=== PATIENT | male | born 1955 | race Caucasian/White ===

== ENCOUNTER → 2018-01-22 | Outpatient (CLI) | payer BC ==
[2016-10-23 19:38] VITALS: BP 174/107
[~2018-01-22] MED LIST: HYDR-965 PO; IBUP600T16 PO
--- NOTE | 2018-01-22 11:13 | RAD ---
Gastric emptying study 01/22/2018 Indication: Regurgitation. Aspiration. Comparison study: None Discussion: Imaging over the abdomen was performed following the oral administration of 2.1 mCi of technetium 99m labeled sulfur colloid in a solid meal (egg and toast). At 1 hour gastric emptying is approximately 40%. Estimated gastric imaging half-time is 83 minutes (normal is 60 =/- 30 minutes). No overt scintigraphic evidence of reflux was identified during the exam. Impression: Gastric emptying time within normal limits
== END | disposition home or self-care (01) ==
LOC: NM 07:23
PROVIDERS: ATTEND Internal Medicine Gastroenterology
DX: K21.9 Gastro-esophageal reflux disease without esophagitis (principal); I10 Essential (primary) hypertension
CPT/HCPCS: 78264; A9541

== ENCOUNTER → 2018-03-13 | Outpatient (CLI) | payer BC ==
[2016-10-23 19:38] VITALS: BP 174/107
[~2018-03-13] MED LIST changes: +BARIUM SULFATE 60% 355 ML SUSP PO ONE; +BARIUM SULFATE 98% 135 ML SUSP PO ONE; +SIMETHICONE/SOD BICARB/CITRIC ACID PACKET. PO ONE
--- NOTE | 2018-03-13 12:51 | RAD ---
Upper GI HISTORY: Hiatal hernia COMPARISON: None FINDINGS: Upper GI examination was performed. Course and caliber of the esophagus is within normal limits, no stricture demonstrated. Esophageal motility is within normal limits. There is very small sliding hiatal hernia. No significant gastric ulcer was identified. There is questionable proximal gastric fold thickening. There is some filling of what probably represents a diverticulum of the proximal descending duodenum. Fluoroscopy time: 2 minutes, 138 images IMPRESSION: 1. There is very small sliding hiatal hernia, no stricture. There is questionable proximal gastric fold thickening, could be seen with gastritis. There is some filling of what probably represents a diverticulum of the proximal descending duodenum. Electronically signed by: Richar Charles MD (03/13/2018 12:49 PM) [id number]
== END | disposition home or self-care (01) ==
LOC: DXRAD 07:09
PROVIDERS: ATTEND Surgery
DX: K44.9 Diaphragmatic hernia without obstruction or gangrene (principal); I10 Essential (primary) hypertension; E78.5 Hyperlipidemia, unspecified
CPT/HCPCS: 74241

== ENCOUNTER 2020-10-09 16:10 | Emergency (ER) | payer BC ==
[~2020-10-09] VITALS: Ht 177.8 cm; Wt 86.0 kg
[~2020-10-09 16:10] MED LIST changes: -BARIUM SULFATE 60% 355 ML SUSP PO ONE; -BARIUM SULFATE 98% 135 ML SUSP PO ONE; +HYDR-3166 PO; -HYDR-965 PO; -SIMETHICONE/SOD BICARB/CITRIC ACID PACKET. PO ONE
[2020-10-09 17:09] VITALS: BP 145/108
--- NOTE | 2020-10-09 18:16 | PHYS DOC ---
Past History Past Medical History: GERD, High Cholesterol, Hypertension (ABRAHAM HERNANDEZ APRN) Past Surgical History: Appendectomy, Cholecystectomy, Other Additional Past Surgical Histo: SINCE SURGERY, VASECTOMY (ABRAHAM HERNANDEZ APRN) Alcohol Use: Occasionally Drug Use: None (ABRAHAM HERNANDEZ APRN) Adult General Chief Complaint Chief Complaint: HIP PAIN [facility] HPI Patient is a 65-year-old male patient presents to the emergency department with complaints of nontraumatic low back pain that started Friday morning. Patient states that his pain was very low and a 1/10 pain on a 1-10 pain scale and slowly progressed to a 10/10 pain by Friday evening. 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 Patient states that he does not recall injuring his back or lifting any heavy objects that may have aggravated his low back pain. Patient states that he ca lled his primary care Dr. Bazan who recommended he go see urgent care today. Patient was at urgent care here at [facility] at approximately 11 AM where they treated him with an injection of Toradol and injection of Norflex IM however they do not know what the doses were. Patient states that he had some relief and was discharged home. Patient states that his pain returned back to a 10-10 pain when moving however he says he has no pain when he is just sitting still. Patient states that he called Dr. Bazan once again who recommended he come straight to the emergency department and have a CAT scan done on his low back. (ABRAHAM HERNANDEZ APRN) Review of Systems Review of Systems Constitutional: Denies fever or chills [] Eyes: Denies change in visual acuity, redness, or eye pain [] HENT: Denies nasal congestion or sore throat [] Respiratory: Denies cough or shortness of breath [] Cardiovascular: No additional information not addressed in HPI [] GI: Denies abdominal pain, nausea, vomiting, bloody stools or diarrhea [] denies loss of bowel or bladder continence : Denies dysuria or hematuria [] Musculoskeletal: Complains of low back pain which radiates to his left hip and down his left leg Integument: Denies rash or skin lesions [] Neurologic: Denies headache, focal weakness or sensory changes, denies numbness or tingling of lower extremities, denies loss of movement of lower extremities Endocrine: Denies polyuria or polydipsia [] All other systems were reviewed and found to be within normal limits, except as documented in this note. (ABRAHAM HERNANDEZ APRN) Current Medications Current Medications Patient states he takes lisinopril for blood pressure Prilosec for GERD and at orvastatin for cholesterol however he does not recall his dosages. (ABRAHAM HERNANDEZ APRN) Allergies Allergies Allergies Coded Allergies Type Severity Reaction Last Updated Verified Sulfa (Sulfonamide Antibiotics) Allergy Severe Swelling 03/13/18 Yes Penicillins Allergy Unknown 03/13/18 Yes (ABRAHAM HERNANDEZ APRN) Physical Exam Physical Exam Constitutional: Well developed, well nourished, no acute distress, non-toxic appearance. [] HENT: Normocephalic, atraumatic, bilateral external ears normal, oropharynx moist, no oral exudates, nose normal. [] Eyes: PERRLA, EOMI, conjunctiva normal, no discharge. [] Neck: Normal range of motion, no tenderness, supple, no stridor. [] Cardiovascular:Heart rate regular rhythm, no murmur [] Lungs & Thorax: Bilateral breath sounds clear to auscultation [] Abdomen: Bowel sounds normal, soft, no tenderness, no masses, no pulsatile mas ses. [] Skin: Warm, dry, no erythema, no rash. [] Back: Tenderness to palpation of bilateral lumbar area, no midline spinal tenderness, no tenderness elicited with palpation down either lower extremity, 2+ dorsalis pedis and posterior tibial pulses, distal cap refill less than 2 seconds, no extremity swelling noted, no loss of sensation, full AROM/PROM. Extremities: No tenderness, no cyanosis, no clubbing, ROM intact, no edema. [] Neurologic: Alert and oriented X 3, normal motor function, normal sensory function, no focal deficits noted. [] Psychologic: Affect normal, judgement normal, mood normal. [] (ABRAHAM HERNANDEZ APRN) Current Patient Data Vital Signs Vital Signs Date Time Temp Pulse Resp B/P (MAP) Pulse Ox O2 Delivery O2 Flow Rate FiO2 10/09/20 17:09 98.1 64 18 145/108 (120) 96 Room Air (ABRAHAM HERNANDEZ APRN) EKG EKG [] (ABRAHAM HERNANDEZ APRN) Radiology/Procedures Radiology/Procedures STATUS: REG ER ORD. PHYSICIAN: ABRAHAM HERNANDEZ APRN REASON: INTRACTABLE PAIN PROCEDURE: CT LUMBAR SPINE WO CONTRAST Exam: CT the lumbar spine without contrast INDICATION: Intractable pain TECHNIQUE: Sequential axial images through the lumbar spine obtained without IV contrast. Sagittal and coronal reformatted images were reconstructed from the axial data and reviewed. Comparisons: None FINDINGS: Vertebral body heights and alignment are well-maintained. Fracture to the lumbar spine is not identified. Mild broad-based disc bulge at L2-L3, L3-L4 and L4-L5. There is moderate bilateral neural foraminal stenosis at L3-L4 on the left and L4-L5 on the right. Visualized paraspinal soft tissues are unremarkable. IMPRESSION: Spondylotic changes described above. Exposure: One or more of the following in the visualized dose reduction techniques were utilized for this examination: 1. Automated exposure control 2. Adjustment of the MA and/or KV according to patient size 3. Use of iterative of reconstructive technique Electronically signed by: Reyna Chaudhry MD (10/09/2020 7:00 PM) [facility] DICTATED AND SIGNED BY: REYNA CHAUDHRY MD DATE: 10/09/20 190 CC: ABRAHAM HERNANDEZ APRN; [facility]; MICHAEL BAZAN MD ~MTH0 0 (ABRAHAM HERNANDEZ APRN) Heart Score Risk Factors: Risk Factors: DM, Current or recent (<one month) smoker, HTN, HLP, family hist ory of CAD, obesity. Risk Scores: Risk Factors: DM, Current or recent (<one month) smoker, HTN, HLP, family history of CAD, obesity. (ABRAHAM HERNANDEZ APRN) Course & Med Decision Making Course & Med Decision Making Pertinent Labs and Imaging studies reviewed. (See chart for details) 55-year-old patient reports emergency department complaining of increased back pain even after he seen in urgent care today reporting that his Dr. Bazan told him to come to the ER for a CAT scan. ER examination was consistent with sciatica pain, there was no midline spinal pain, no saddle anesthesia, no loss of continence no loss of bowel. Patient was given 80 mg Depo-Medrol IM, 2 mg Dilaudid IM, a CT scan of the L-spine without contrast was performed and interpreted by house radiologist as no acute fracture. Reexamination of the patient found patient to be virtually pain-free per his verbal statement, patient rates his pain at a 1 or so 4/10 on a 1-10 pain scale. Discussed with patient diagnosis of sciatica, need to keep appointment with Dr. Bazan this Friday, will only give 6 tablets of pain medication and muscle relaxer so that Dr. Bazan can determine what medications he wishes him to be on going forward. Patient gave verbal understanding of home care instructions, prescription instructions, return to ER concerns, patient had no further questions or concerns, patient ambulatory with steady gait without difficulty without incident to ER exit. (ABRAHAM HERNANDEZ APRN) Dragon Disclaimer Dragon Disclaimer This electronic medical record was generated, in whole or in part, using a voice recognition dictation system. (ABRAHAM HERNANDEZ APRN) Attending Co-Sign The patient was seen and well-appearing. The chart was reviewed. The case was discussed. Agree with the plan of care. (SANKET MADRIGAL DO) Departure Departure: Impression: Primary Impression: Low back pain Disposition: 01 DC HOME SELF CARE/HOMELESS Condition: IMPROVED Referrals: MICHAEL BAZAN MD (PCP) Patient Instructions: Back Exercises, Back Pain, Adult, Sciatica Additional Instructions: Please let Dr. Bazan know that you had a CAT scan of your lumbar spine in the emergency department, you are giving 80 mg Depo-Medrol IM injection, 2 mg Dilaudid IM injection. I wrote you for 6 tablets of 10 mg Percocet, and 6 tablets of 4 mg Zanaflex, and 10 tablets of 600 mg ibuprofen, please take prescribed medications as directed, I have only given you only a few as you have a appointment with Dr. Bazan on Friday and he can determine what medications he would like for you to be on going forward. Please return to the emergency department for worsening symptoms or other concerns. Use ice packs to your low back over the next 48 hours 15 minutes on 15 minutes off intervals while awake. EMERGENCY DEPARTMENT GENERAL DISCHARGE INSTRUCTIONS Thank you for coming to [facility] (ED) today and trusting us with you care. We trust that you had a positivie experience in our Emergency Department. If you wish to speak to the department management, you may call the director at [phone]. YOUR FOLLOW UP INSTRUCTIONS ARE FOLLOWS: 1. Do you have a private Doctor? If you do not have a private doctor, please ask for a resource list of physicians or clinics that may be able to assist you with follow up care. 2. The Emergency Physician has interpreted your x-rays. The X-Ray specialist will also review them. If there is a change in the findings, you will be notified in 48 hours when at all possible. 3. A lab test or culture has been done, your results will be reviewed and you will be notified if you need a change in treatment. ADDITIONAL INSTRUCTIONS AND INFORMATION: 1. Your care today has been supervised by a physician who is specially trained in emergency care. Many problems require more than one evaluation for a complete diagnosis and treatment. We recommend that you schedule your follow up appointment as recommended to ensure complete treatment of you illness or injury. If you are unable to obtain follow up care and continue to have a problem, or if your condition worsens, we recommend that you return to the ED. 2. We are not able to safely determine your condition over the phone nor are we able to give sound medical advice over the phone. For these safety reasons, if you call for medical advice we will ask you to come to the ED for further evaluation. 3. If you have any questions regarding these discharge instructions please call the ED at [phone]. SAFETY INFORMATION: In the interest of safety, wellness, and injury prevention; we encourage you to wear your sealbelt, if you smoke; quite smoking, and we encourage family to use a protective helmet for bicycling and other sporting events that present an increased risk for head injury. IF YOUR SYMPTOMS WORSEN OR NEW SYMPTOMS DEVELOP, OR YOU HAVE CONCERNS ABOUT YOUR CONDITION; OR IF YOUR CONDITION WORSENS WHILE YOU ARE WAITING FOR YOUR FOLLOW UP APPOINTMENT; EITHER CONTACT YOUR PRIMARY CARE DOCTOR, THE PHYSICIAN WHOSE NAME AND NUMBER YOU WERE GIVEN, OR RETURN TO THE ED IMMEDIATELY. Scripts Oxycodone Hcl/Acetaminophen (PERCOCET 10-325 MG TABLET ) 1 Each Tablet 1 TAB PO TID PRN PRN for BREAKTHROUGH PAIN MDD 3 TABLETS for 2 Days, #6 TAB 0 Refills Prov: ABRAHAM HERNANDEZ APRN 10/09/20 Ibuprofen (IBUPROFEN) 600 Mg Tablet 600 MG PO TID PRN PRN for BACK PAIN, #10 TAB 0 Refills Prov: ABRAHAM HERNANDEZ APRN 10/09/20 Tizanidine Hcl (ZANAFLEX) 4 Mg Tablet 1 TAB PO TID for LOW BACK PAIN, #6 TAB 0 Refills Prov: TIFFANYBatshevaABRAHAM APRN 10/09/20 Problem Qualifiers Primary Impression: Low back pain Chronicity: acute Back pain laterality: left Sciatica presence: with sciatica Sciatica laterality: sciatica of left side Qualified Codes: M54.42 - Lumbago with sciatica, left side ABRAHAM HERNANDEZ APRN Oct 09, 2020 18:16 SANKET MADRIGAL DO Oct 10, 2020 13:10
[2020-10-09] MEDS ORDERED: HYDROmorphone PF 2 MG/ML VIAL IM ONE (18:30)
[2020-10-09] MEDS ORDERED: methylPREDNISolone ACETATE 80 MG/ML VIAL. IM ONE (18:30)
--- NOTE | 2020-10-09 19:02 | RAD ---
Exam: CT the lumbar spine without contrast INDICATION: Intractable pain TECHNIQUE: Sequential axial images through the lumbar spine obtained without IV contrast. Sagittal and coronal reformatted images were reconstructed from the axial data and reviewed. Comparisons: None FINDINGS: Vertebral body heights and alignment are well-maintained. Fracture to the lumbar spine is not identified. Mild broad-based disc bulge at L2-L3, L3-L4 and L4-L5. There is moderate bilateral neural foraminal stenosis at L3-L4 on the left and L4-L5 on the right. Visualized paraspinal soft tissues are unremarkable. IMPRESSION: Spondylotic changes described above. Exposure: One or more of the following in the visualized dose reduction techniques were utilized for this examination: 1. Automated exposure control 2. Adjustment of the MA and/or KV according to patient size 3. Use of iterative of reconstructive technique Electronically signed by: Reyna Carter MD (10/09/2020 7:00 PM) [facility]
[2020-10-09] MEDS ORDERED: TIZA4TAB8 PO (19:31)
[2020-10-09] MEDS ORDERED: OXYC1TAB22 PO (19:31)
[2020-10-09] MEDS ORDERED: IBUP600T16 PO (19:31)
== END 2020-10-09 19:45 | disposition home or self-care (01) ==
LOC: ER 16:10
DX: M54.5 Low back pain (principal); M25.552 Pain in left hip; K21.9 Gastro-esophageal reflux disease without esophagitis; E78.00 Pure hypercholesterolemia, unspecified; I10 Essential (primary) hypertension; Z90.89 Acquired absence of other organs; Z90.49 Acquired absence of other specified parts of digestive tract; Z98.890 Other specified postprocedural states; Z88.2 Allergy status to sulfonamides; Z88.0 Allergy status to penicillin
CPT/HCPCS: 72131; 96372; 99284; J1040; J1170

== ENCOUNTER → 2020-12-14 | Outpatient (CLI) | payer BC ==
[~2020-12-14] MED LIST changes: +OXYC1TAB22 PO; +TIZA4TAB8 PO
--- NOTE | 2020-12-14 12:49 | RAD ---
Chest, PA and Lateral: Technique: PA and lateral views of the chest were obtained. History: Cough. Comparison: None. Findings: The cardiovascular silhouette grossly appears unremarkable. Mild bibasilar lung airspace opacities li treva atelectasis or infiltrates. IMPRESSION: 1. Mild bibasilar lung airspace opacities likely atelectasis or infiltrates. Electronically signed by: Chuckie Dominguez MD (12/14/2020 12:46 PM) [id number]
== END ==
LOC: URGCARE 12:09
PROVIDERS: ATTEND Family Medicine
DX: R05 Cough (principal)
CPT/HCPCS: 71046